=== PATIENT | male | born 1995 | race Caucasian/White ===

== ENCOUNTER 2020-03-03 10:19 | Emergency (ER) | payer OTHER ==
[~2020-03-03] VITALS: Ht 177.8 cm; Wt 70.3 kg
[2020-03-03] MEDS ORDERED: ORPHENADRINE C100 MG PO (14:35)
[2020-03-03] MEDS ORDERED: KETO10TA2 PO (14:35)
== END 2020-03-03 14:57 | disposition home or self-care (01) ==
LOC: ER 10:19
DX: M94.0 Chondrocostal junction syndrome [Tietze] (principal); R07.89 Other chest pain

== ENCOUNTER 2020-06-06 10:09 | Emergency (ER) | payer OTHER ==
[~2020-06-06] VITALS: Ht 180.3 cm; Wt 70.3 kg
[~2020-06-06 10:09] MED LIST: KETO10TA2 PO; ORPHENADRINE C100 MG PO
[2020-06-06] MEDS ORDERED: ZITHROMAX500 MG PO (14:45)
[2020-06-06] MEDS ORDERED: BUTALB-ACETAMI1 EAC2 PO (14:45)
== END 2020-06-06 14:53 | disposition home or self-care (01) ==
LOC: ER 10:09
DX: A49.3 Mycoplasma infection, unspecified site (principal); G43.809 Other migraine, not intractable, without status migrainosus

== ENCOUNTER 2021-10-15 18:23 | Emergency (ER) | payer OTHER ==
[~2021-10-15] VITALS: Ht 180.3 cm; Wt 77.1 kg
[~2021-10-15 18:23] MED LIST changes: +BUTALB-ACETAMI1 EAC2 PO; +ZITHROMAX500 MG PO
[2021-10-15] MEDS ORDERED: PRILOSEC OTC20 MG PO (19:17)
[2021-10-15] MEDS ORDERED: PROTONIX40 MG PO (21:24)
== END 2021-10-15 22:16 | disposition home or self-care (01) ==
LOC: ER 18:23
DX: K29.70 Gastritis, unspecified, without bleeding (principal)